=== PATIENT | female | born 1955 | race Caucasian/White ===

== ENCOUNTER → 2017-10-09 | Outpatient (CLI) | payer BC | LOC: MC.RAD 11:15 | DX: Z12.31 Encounter for screening mammogram for malignant neoplasm of breast (principal) ==

== ENCOUNTER 2018-07-16 12:42 | Emergency (ER) | payer BC ==
[~2018-07-16] VITALS: Ht 170.2 cm; Wt 72.7 kg
[2018-07-16 12:45] VITALS: TEMP 97.7
[2018-07-16] MEDS ORDERED: CALCIUM CARBON650 M2 (12:48)
[2018-07-16] MEDS ORDERED: ASPIRIN 81M81 MG/TA2 PO (12:48)
[2018-07-16] MEDS ORDERED: TYLENOL 500MG500 MG PO (12:55)
[2018-07-16 13:46] LABS: BASO % 0.6 % (0.0-2.0); GRAN # 5.4 (1.4-6.5); GRAN % 81.2 % (42.2-75.2); HEMATOCRIT 42.6 % (37.0-47.0); HEMOGLOBIN 13.9 g/dl (12.5-16.0); LYMPH # 0.9 (1.2-3.4); LYMPH % 13.2 % (20.0-51.0); MEAN CELL VOLUME 87 fl (80.0-100.0); MEAN CORPUSCULAR HEMOGLOBIN 28 pg (27.0-31.0); MEAN CORPUSCULAR HGB CONC 33 g/dl (33.0-37.0); MEAN PLATELET VOLUME 8.8 fl (7.4-10.4); MONO # 0.3 (0.1-0.6); MONO % 4.7 % (1.7-9.3); PLATELET COUNT 311 K/mm3 (130-400); RED BLOOD COUNT 4.89 M/mm3 (4.10-5.30); REDCELL DISTRIBUTION WIDTH-CV 13.4 % (11.5-14.5)
[2018-07-16 14:01] LABS: ALANINE AMINOTRANSFERASE 50 U/L (9-52); ALBUMIN 3.7 gm/dL (3.5-5.0); ALKALINE PHOSPHATASE 68 U/L (50-136); ANION GAP 2 mmol/L (7-16); AST,SGOT 35 U/L (15-37); BILIRUBIN,TOTAL 0.6 mg/dL (0.0-1.0); BLOOD UREA NITROGEN 14 mg/dL (7-17); CALCIUM 8.7 mg/dL (8.4-10.2); CARBON DIOXIDE 32 mmol/L (22-30); CHLORIDE 107 mmol/L (98-107); CREATININE, serum 0.59 mg/dL (0.52-1.25); GLUCOSE 114 mg/dL (74-106); POTASSIUM 3.5 mmol/L (3.4-5.0); SODIUM 142 mmol/L (137-145); TOTAL PROTEIN 6.9 gm/dL (6.4-8.2)
[2018-07-16 14:05] LABS: C-REACTIVE PROTEIN < 0.5 mg/dL (0.0-0.9)
[2018-07-16] MEDS ORDERED: ZOFRAN ODT4 MG PO (14:45)
[2018-07-16 15:07] VITALS: BP 115/68; PULSE 64
== END 2018-07-16 15:08 | disposition home or self-care (01) ==
LOC: COL.ER 12:42
PROVIDERS: Emergency Medicine
DX: G43.909 Migraine, unspecified, not intractable, without status migrainosus (principal); Z79.82 Long term (current) use of aspirin
CPT/HCPCS: J1885; J2405; J7030

== ENCOUNTER 2018-07-17 05:47 | Emergency (ER) | payer BC ==
[~2018-07-17] VITALS: Ht 170.2 cm; Wt 72.7 kg
[~2018-07-17 05:47] MED LIST: ASPIRIN 81M81 MG/TA2 PO; CALCIUM CARBON650 M2; TYLENOL 500MG500 MG PO; ZOFRAN ODT4 MG PO
[2018-07-17 05:58] VITALS: TEMP 97.8
[2018-07-17 08:48] VITALS: BP 140/58; PULSE 80
== END 2018-07-17 08:48 | disposition home or self-care (01) ==
LOC: COL.ER 05:47
DX: R51 Headache (principal); Z79.82 Long term (current) use of aspirin
CPT/HCPCS: J0780; J1200; J1885; J7030

== ENCOUNTER → 2019-11-26 | Outpatient (CLI) | payer BC | LOC: MC.RAD 08:34 | DX: Z12.31 Encounter for screening mammogram for malignant neoplasm of breast (principal) ==

== ENCOUNTER → 2021-01-02 | Outpatient (CLI) | payer BC | LOC: MC.RAD 11-28 07:30 | DX: Z12.31 Encounter for screening mammogram for malignant neoplasm of breast (principal) ==

== ENCOUNTER → 2022-01-18 | Outpatient (CLI) | payer BC | LOC: MC.RAD 08:21 | DX: Z12.31 Encounter for screening mammogram for malignant neoplasm of breast (principal) ==

== ENCOUNTER 2022-04-27 16:31 | Emergency (ER) | payer BC ==
[~2022-04-27] VITALS: Ht 167.6 cm; Wt 73.6 kg
[2022-04-27 17:20] VITALS: BP 144/68; PULSE 74; TEMP 97.7
== END 2022-04-27 19:26 | disposition left against medical advice (07) ==
LOC: COL.ER 16:31
DX: G43.909 Migraine, unspecified, not intractable, without status migrainosus (principal); Z20.822 Contact with and (suspected) exposure to COVID-19

== ENCOUNTER → 2023-01-24 | Outpatient (CLI) | payer BC | LOC: MC.RAD 09:41 | DX: Z12.31 Encounter for screening mammogram for malignant neoplasm of breast (principal) ==

== ENCOUNTER → 2024-01-27 | Outpatient (CLI) | payer BC | LOC: MC.RAD 07:46 | DX: Z12.31 Encounter for screening mammogram for malignant neoplasm of breast (principal) ==

== ENCOUNTER 2024-04-09 13:49 | Outpatient (CLI) | payer BC ==
[~2024-04-09] VITALS: Ht 167.6 cm; Wt 79.0 kg
[~2024-04-09 13:49] MED LIST changes: +CALCIUM 600MG+D1 TAB PO; -CALCIUM CARBON650 M2
[2024-04-09 14:14] VITALS: BP 123/78; PULSE 81; TEMP 98.3
[2024-04-09] MEDS ORDERED: LIPITOR20 MG PO (14:27)
[2024-04-09] MEDS ORDERED: VITAMIN D31000 IU PO (14:28)
[2024-04-09] MEDS ORDERED: RECLAST5 MG/100 M IV (14:29)
[2024-04-09] MEDS ORDERED: B-121000 MCG PO (14:30)
[2024-04-09] MEDS ORDERED: MAGNESIUM250 M1 PO (14:30)
--- NOTE | 2024-04-09 15:17 | NUR ---
Pt remained in [place] following initial dose of reclast. She tolerated well. No s/s of reaction noted. IV DC'd, site wrapped with coban. She exits dept with steady gait. Free of complaints at discharge.
== END 2024-04-09 15:18 | disposition home or self-care (01) ==
LOC: EUO 13:49
DX: M81.0 Age-related osteoporosis without current pathological fracture (principal)
CPT/HCPCS: J3489